=== PATIENT | female | born 1990 | race Caucasian/White ===

== ENCOUNTER 2016-12-12 20:09 | Emergency (ER) | payer OTHER | END 2016-12-12 21:55 | disposition home or self-care (01) | LOC: ER1 20:09 | DX: S83.91XA Sprain of unspecified site of right knee, initial encounter (principal); S76.311A Strain of muscle, fascia and tendon of the posterior muscle group at thigh level, right thigh, initial encounter; F17.210 Nicotine dependence, cigarettes, uncomplicated; Z88.0 Allergy status to penicillin; Z88.5 Allergy status to narcotic agent; X58.XXXA Exposure to other specified factors, initial encounter | CPT/HCPCS: 73564; 99283 ==

== ENCOUNTER 2021-01-14 17:22 | Inpatient (IN) | payer OTHER ==
[~2021-01-14] VITALS: Ht 154.9 cm; Wt 103.0 kg
[~2021-01-14 17:22] MED LIST: NORCO 5-325 TA1 EACH PO
[2021-01-14 19:18] LABS: HEMOGLOBIN 12.3 gm/dl (12.3-15.3); RED BLOOD COUNT 4.15 M/UL (4.00-5.10); WHITE BLOOD COUNT 11.2 K/UL (4.5-11.0)
[2021-01-14 19:51] LABS: BUN/CREATININE RATIO 14 (0-10)
[2021-01-15] MEDS ORDERED: ONDANSETRON HCL4 MG PO (03:07)
[2021-01-15 06:34] LABS: HEMOGLOBIN 12.3 gm/dl (12.3-15.3); RED BLOOD COUNT 4.13 M/UL (4.00-5.10); WHITE BLOOD COUNT 11.7 K/UL (4.5-11.0)
[2021-01-15 06:40] LABS: BUN/CREATININE RATIO 14 (0-10)
[2021-01-16 06:37] LABS: HEMOGLOBIN 13.4 gm/dl (12.3-15.3)
[2021-01-16 09:13] LABS: HIV SCREEN 4TH GENERATION WRFX Non Reactive (Non Reactive)
[2021-01-16 10:13] LABS: RPR Non Reactive (Non Reactive)
[2021-01-16 12:12] LABS: HBSAG SCREEN Negative (Negative)
[2021-01-17 09:13] LABS: RUBELLA ANTIBODIES, IGG 3.04 index (Immune >0.99)
[2021-01-21 09:29] LABS: HCV ANTIBODY >11.0 s/co ratio
== END 2021-01-16 17:21 | disposition home or self-care (01) | DRG 807 ==
LOC: GENOP 17:22 → OB 23:20
PROVIDERS: Obstetrics & Gynecology; ADMIT Obstetrics & Gynecology
PROC: 4A1HXCZ Monitoring of Products of Conception, Cardiac Rate, External Approach (ICD-10-PCS; 2021-01-14)
PROC: 10E0XZZ Delivery of Products of Conception, External Approach (ICD-10-PCS; principal; 2021-01-15)
PROC: 10907ZC Drainage of Amniotic Fluid, Therapeutic from Products of Conception, Via Natural or Artificial Opening (ICD-10-PCS; 2021-01-15)
PROC: 3E033VJ Introduction of Other Hormone into Peripheral Vein, Percutaneous Approach (ICD-10-PCS; 2021-01-15)
PROC: 0HQ9XZZ Repair Perineum Skin, External Approach (ICD-10-PCS; 2021-01-15)
DX: O13.4 Gestational [pregnancy-induced] hypertension without significant proteinuria, complicating childbirth (principal); Z37.0 Single live birth; Z3A.36 36 weeks gestation of pregnancy; O76 Abnormality in fetal heart rate and rhythm complicating labor and delivery; Z20.822 Contact with and (suspected) exposure to COVID-19; O99.214 Obesity complicating childbirth; O24.420 Gestational diabetes mellitus in childbirth, diet controlled; O21.0 Mild hyperemesis gravidarum; O70.0 First degree perineal laceration during delivery
CPT/HCPCS: 36415; 51702; 80053; 81001; 82570; 82800; 84156; 84550; 85014; 85018; 85025; 85461; 86592; 86762; 86803; 86850; 86900; 86901; 87340; 87389; 90715; J2790; J7120; U0002

== ENCOUNTER 2021-01-21 17:48 | Inpatient (IN) | payer OTHER ==
[~2021-01-21] VITALS: Ht 157.5 cm; Wt 103.0 kg
[~2021-01-21 17:48] MED LIST changes: +ONDANSETRON HCL4 MG PO
[2021-01-21 18:34] LABS: HEMOGLOBIN 12.1 gm/dl (12.3-15.3); RED BLOOD COUNT 4.08 M/UL (4.00-5.10); WHITE BLOOD COUNT 6.6 K/UL (4.5-11.0)
[2021-01-21 18:57] LABS: BUN/CREATININE RATIO 16 (0-10)
[2021-01-22] MEDS ORDERED: PROCARDIA XL30 MG PO (07:50)
[2021-01-22] MEDS ORDERED: IBUPROFEN800 MG PO (07:51)
[2021-01-23] MEDS ORDERED: LABETALOL HCL200 MG PO (10:18)
[2021-01-23] MEDS ORDERED: IBUPROFEN800 MG PO (10:18)
[2021-01-23] MEDS ORDERED: NIFEDIPINE ER30 M1 PO (10:18)
== END 2021-01-23 13:15 | disposition home or self-care (01) | DRG 776 ==
LOC: GENOP 17:48 → OB 18:04 → GENOP 18:05 → OB 01-22 15:14
PROVIDERS: Obstetrics & Gynecology; ADMIT Obstetrics & Gynecology
PROC: 02HV33Z Insertion of Infusion Device into Superior Vena Cava, Percutaneous Approach (ICD-10-PCS; principal; 2021-01-21)
DX: O14.95 Unspecified pre-eclampsia, complicating the puerperium (principal); Z20.822 Contact with and (suspected) exposure to COVID-19; Z90.49 Acquired absence of other specified parts of digestive tract; O99.63 Diseases of the digestive system complicating the puerperium; Z82.49 Family history of ischemic heart disease and other diseases of the circulatory system; Z83.3 Family history of diabetes mellitus; Z80.9 Family history of malignant neoplasm, unspecified
CPT/HCPCS: 36415; 71045; 80053; 81001; 82570; 83735; 84156; 85025; 96374; 96375; 96376; C1751; G0378; J0610; J2270; J3475; J7120; U0002